=== PATIENT | male | born 2000 | race Caucasian/White ===

== ENCOUNTER 2021-10-03 18:47 | Emergency (ER) | payer BC, OTHER ==
[~2021-10-03] VITALS: Ht 170 cm; Wt 63.5 kg
[2021-10-03] MEDS ORDERED: hydrOXYzine (VISTARIL/ATARAX) 25 MG capsule/tablet ONE (19:07)
--- NOTE | 2021-10-03 19:20 | ED General ---
General Chief Complaint: Allergic Reaction Stated Complaint: ALLERGIC REACTION Source of Information: Patient Exam Limitations: No Limitations History of Present Illness Date Seen by Provider: Oct 03, 2021 Time Seen by Provider: 19:09 Initial Comments This is a well-appearing 20-year-old male who presented to the ER for concerns of allergic reaction. States that his entire family has a history of macadamia nut allergy, today he ate about 3 handfuls of macadamia nuts. He has had these in the past with no issue however he has never ate "this many" before. Also states that his apartment was sprayed for bugs today, he was only in his apartment for about 30 minutes, but does not know if this is contributing to his symptoms. States that he was in class and started to feel short of breath. States that he started having a racing heart which made it increasingly difficult to breathe. He went to his apartment and took 2 Zyrtec which "did not change anything". He had a friend drive him to the ER to be further evaluated. Allergies and Home Medications Allergies Coded Allergies: No Known Drug Allergies (Unverified , 10/03/21) Patient Home Medication List Home Medication List Reviewed: Yes Review of Systems Review of Systems Constitutional: no symptoms reported EENTM: throat swelling Respiratory: short of breath; No wheezing Cardiovascular: see HPI Gastrointestinal: no symptoms reported Genitourinary: no symptoms reported Musculoskeletal: no symptoms reported Skin: no symptoms reported Psychiatric/Neurological: No Symptoms Reported Hematologic/Lymphatic: No Symptoms Reported Immunological/Allergic: no symptoms reported Past Akowkgy-Nggmfo-Xutmml Hx Patient Social History Tobacco Use?: No Use of E-Cig and/or Vaping dev: No Substance use?: No Alcohol Use?: No Pt feels they are or have been: No Immunizations Up To Date First/Initial COVID19 Vaccinat: 2020 COVID19 Vaccine Foundry Supervisor: MODERNA Physical Exam Vital Signs Vital Signs - First Documented 10/03/21 19:00 Temp 36.7 Pulse 104 Resp 18 B/P (MAP) 143/90 (107) Capillary Refill : Height, Weight, BMI Height: '" Weight: lbs. oz. kg; BMI Method: General Appearance: No Apparent Distress, WD/WN, Anxious Eyes: Bilateral Eye Normal Inspection, Bilateral Eye PERRL, Bilateral Eye EOMI HEENT: PERRL/EOMI, Normal ENT Inspection, Pharynx Normal, Moist Mucous Membranes Neck: Full Range of Motion, Normal Inspection, Supple Respiratory: Lungs Clear, Normal Breath Sounds, No Accessory Muscle Use, No Respiratory Distress Cardiovascular: Regular Rate, Rhythm, No Murmur Gastrointestinal: Normal Bowel Sounds, Non Tender, Soft Back: Normal Inspection Extremity: Normal Capillary Refill, Normal Inspection, Normal Range of Motion Neurologic/Psychiatric: Alert, No Motor/Sensory Deficits, Normal Mood/Affect, statistics intern II-XII Norm as Tested Skin: Normal Color, Warm/Dry Progress/Results/Core Measures Suspected Sepsis SIRS Temperature: Pulse: Respiratory Rate: Blood Pressure / Mean: Results/Orders My Orders Orders - LUCY DASH APRN Hydroxyzine Cap/Tab (Vistaril) (10/03/21 19:07) Ekg Tracing (10/03/21 19:20) Alprazolam Tablet (Xanax Tablet) (10/03/21 20:00) Famotidine Tablet (Pepcid Tablet) (10/03/21 20:00) Medications Given in ED Current Medications Medications Dose Ordered Sig/Denzel Route Start Time Stop Time Status Last Admin Dose Admin Alprazolam 0.25 mg ONCE ONCE PO 10/03/21 20:00 10/03/21 20:01 DC 10/03/21 20:01 0.25 MG Famotidine 20 mg ONCE ONCE PO 10/03/21 20:00 10/03/21 20:01 DC 10/03/21 20:01 20 MG Hydroxyzine Pamoate 25 mg STK-MED ONCE .ROUTE 10/03/21 19:07 10/03/21 19:09 DC 10/03/21 19:10 25 MG Vital Signs/I&O 10/03/21 19:00 Temp 36.7 Pulse 104 Resp 18 B/P (MAP) 143/90 (107) Capillary Refill : Departure Impression Primary Impression: Allergic reaction Additional Impression: Anxiety Disposition: 01 HOME, SELF-CARE Condition: Improved Departure-Patient Inst. Decision time for Depature: 20:47 Patient Instructions: Allergic Reaction ED Add. Discharge Instructions: Plan: 1. May take Benadryl 25mg by mouth up to every four hours as needed. 2. Take one Claritin or Zyrtec daily. 3. Avoid eating any nuts. 4. Return to ER for any new, concerning, or worsening symptoms. All discharge instructions reviewed with patient and/or family. Voiced understanding. LUCY DASH AQUACULTURE PROGRAM DIRECTOR Oct 03, 2021 19:20
[2021-10-03] MEDS ORDERED: FAMOTIDINE 20 MG (PEPCID) TABLET PO ONE (20:00)
[2021-10-03] MEDS ORDERED: ALPRAZolam 0.25 MG (XANAX) TAB PO ONE (20:00)
[2021-10-03 20:49] VITALS: BP 121/75
== END 2021-10-03 20:50 | disposition home or self-care (01) ==
LOC: ER 18:50
DX: T78.1XXA Other adverse food reactions, not elsewhere classified, initial encounter (principal); R06.02 Shortness of breath; F41.9 Anxiety disorder, unspecified
CPT/HCPCS: 93005; 96374